=== PATIENT | male | born 1995 | race Hispanic/Latino ===

== ENCOUNTER 2021-01-16 13:16 | Emergency (ER) | payer OTHER ==
[2021-01-16 13:43] VITALS: BP 116/81
[2021-01-16] MEDS ORDERED: METOCLOPRAMIDE 10 MG TAB PO ONE (14:25)
--- NOTE | 2021-01-16 14:28 | Emergency Department Report ---
HPI - General Chief Complaint: Abdominal Pain Time Seen by Provider: 01/16/21 14:24 - HPI HPI: 25-year-old male presents to the emergency department complaint of a 3-week history of nausea with vomiting, and now a 1 to 2-day history of tingling in the hands and around his mouth. Patient says that the nausea is no significant upon waking in the morning. He will vomit once or twice, but if the patient tries to eat anything during any meals he then proceeds to vomit shortly afterwards. He denies any fever, back pain, dysuria, constipation. He does complain of occasional diarrhea. The patient has taken some Zofran that his grandmother has been prescribed and it was working at first but seems to have lost its effectiveness. Because of the symptoms the patient says that he has had decreased oral intake. No recent travel or sick contacts at home. He is vaccinated against COVID-19. Patient denies any significant abdominal discomfort, but says that it feels sore secondary to the vomiting or retching. ED Past Medical Hx - Medications Home Medications: Home Medications Medication Instructions Recorded Confirmed Last Taken Type Famotidine [Pepcid] 20 mg PO BID #20 tablet 01/16/21 Unknown Rx Metoclopramide [Reglan] 10 mg PO TID PRN #20 tab 01/16/21 Unknown Rx ED Review of Systems ROS: Stated complaint: FACIAL NUMBNESS Other details as noted in HPI Comment: All other systems reviewed and negative Constitutional: denies: chills, fever Eyes: denies: eye pain, vision change ENT: denies: ear pain, throat pain Respiratory: denies: cough, shortness of breath Cardiovascular: denies: chest pain, palpitations Gastrointestinal: abdominal pain, nausea, vomiting, diarrhea Genitourinary: denies: dysuria, discharge Musculoskeletal: denies: back pain, arthralgia Skin: denies: rash, lesions Neurological: denies: headache, weakness Physical Exam - Physical Exam Vital Signs: Vital Signs 01/16/21 13:42 Temperature 98.7 F Pulse Rate 91 H Respiratory 18 Rate Blood Pressure 116/81 [Left] O2 Sat by Pulse 100 Oximetry Physical Exam: GENERAL: The patient is well-developed well-nourished. HENT: Normocephalic. Atraumatic. Patient has moist mucous membranes. EYES: Extraocular motions are intact. NECK: Supple. Trachea is midline. CHEST/LUNGS: Clear to auscultation. There is no respiratory distress noted. HEART/CARDIOVASCULAR: Regular. There is no tachycardia. There is no murmur. ABDOMEN: Abdomen is soft, nontender. Patient has normal bowel sounds. There is no abdominal distention. SKIN: Skin is warm and dry. NEURO: The patient is awake, alert, and oriented. The patient is cooperative. The patient has no focal neurologic deficits. Normal speech. MUSCULOSKELETAL: There is no tenderness or deformity. There is no limitation range of motion. Capillary refill less than 2 seconds and radial pulse +2/4. ED Course Vital Signs 01/16/21 13:42 Temperature 98.7 F Pulse Rate 91 H Respiratory 18 Rate Blood Pressure 116/81 [Left] O2 Sat by Pulse 100 Oximetry ED Medical Decision Making - Lab Data Result diagrams: 01/16/21 14:37 01/16/21 14:37 Lab Results 01/16/21 01/16/21 Range/Units 14:37 14:37 WBC 4.1 L (4.5-11.0) K/mm3 RBC 5.30 H (3.65-5.03) M/mm3 Hgb 16.5 H (11.8-15.2) gm/dl Hct 47.8 H (35.5-45.6) % MCV 90 (84-94) fl MCH 31 (28-32) pg MCHC 35 H (32-34) % RDW 12.5 L (13.2-15.2) % Plt Count 216 (140-440) K/mm3 Lymph % (Auto) 19.7 (13.4-35.0) % Clay % (Auto) 7.1 (0.0-7.3) % Eos % (Auto) 0.1 (0.0-4.3) % Baso % (Auto) 0.6 (0.0-1.8) % Lymph # (Auto) 0.8 L (1.2-5.4) K/mm3 Clay # (Auto) 0.3 (0.0-0.8) K/mm3 Eos # (Auto) 0.0 (0.0-0.4) K/mm3 Baso # (Auto) 0.0 (0.0-0.1) K/mm3 Seg Neutrophils % 72.5 H (40.0-70.0) % Seg Neutrophils # 2.9 (1.8-7.7) K/mm3 Sodium 138 (137-145) mmol/L Potassium 3.9 (3.6-5.0) mmol/L Chloride 101.4 (98-107) mmol/L Carbon Dioxide 25 (22-30) mmol/L Anion Gap 16 mmol/L BUN 9 (9-20) mg/dL Creatinine 1.0 (0.8-1.3) mg/dL Estimated GFR > 60 ml/min BUN/Creatinine Ratio 9 % Glucose 96 (75-100) mg/dL Calcium 10.0 (8.4-10.2) mg/dL Magnesium 2.40 H (1.7-2.3) mg/dL Total Bilirubin 1.00 (0.1-1.2) mg/dL AST 14 (5-40) units/L ALT 9 (7-56) units/L Alkaline Phosphatase 51 (35-129) units/L Total Protein 7.3 (6.3-8.2) g/dL Albumin 5.2 H (3.9-5) g/dL Albumin/Globulin Ratio 2.5 % - Medical Decision Making This patient presents with a 3-week history of nausea with vomiting, that worsens with any oral intake. On examination the abdomen is soft, nontender and nondistended, and nontoxic in appearance. Patient does not appear in any respiratory or acute distress. Labs have been mostly unremarkable including CBC, metabolic panel and magnesium level. There are no significant electrolyte abnormalities, but the CBC does appear hemoconcentrated and thus possibly showing some mild dehydration. Vital signs reassuring including being afebrile. The patient was able to pass an oral challenge. He will be discharged home with a prescription for Reglan and outpatient follow-up with [facility]. Critical Care Time: No Critical care attestation.: If time is entered above; I have spent that time in minutes in the direct care of this critically ill patient, excluding procedure time. ED Disposition Clinical Impression: Dehydration Nausea & vomiting Qualifiers: Vomiting type: unspecified Vomiting Intractability: non-intractable Qualified Code(s): R11.2 - Nausea with vomiting, unspecified Disposition: 01 HOME / SELF CARE / HOMELESS Is pt being admited?: No Condition: Stable Instructions: Nausea and Vomiting, Adult, Dehydration, Adult Additional Instructions: Please follow-up with a primary care physician in the next few days. I have given you a referral for a local primary care physician, Dr. Philip, and a primary care clinic, [facility]. I have given you a referral for [facility] to follow-up regarding your chronic and/or persistent nausea with vomiting. Increase your oral rehydration. Return to the emergency department with any worsening of your symptoms, new or concerning symptoms not addressed during this current emergency department visit, or with any acute distress. Prescriptions: Famotidine [Pepcid] 20 mg PO BID #20 tablet Metoclopramide [Reglan] 10 mg PO TID PRN #20 tab PRN Reason: Nausea Referrals: PRIMARY CAREMD [Primary Care Provider] - 3-5 Days [facility] [Provider Group] - 3-5 Days [facility] [Provider Group] - 3-5 Days EDEL PHILIP MD [Staff Physician] - 3-5 Days Time of Disposition: 15:28
[2021-01-16 14:52] LABS: Basophils % (Auto) 0.6 % (0.0-1.8); Eosinophils % (Auto) 0.1 % (0.0-4.3); Hematocrit 47.8 % (35.5-45.6); Hemoglobin 16.5 gm/dl (11.8-15.2); Lymphocytes # (Auto) 0.8 K/mm3 (1.2-5.4); Lymphocytes % (Auto) 19.7 % (13.4-35.0); Mean Corpuscular HGB Conc 35 % (32-34); Mean Corpuscular Volume 90 fl (84-94); Monocytes # (Auto) 0.3 K/mm3 (0.0-0.8); Monocytes % (Auto) 7.1 % (0.0-7.3); Platelet Count 216 K/mm3 (140-440); Red Cell Distribution Width 12.5 % (13.2-15.2)
[2021-01-16 15:15] LABS: Alanine Aminotransferase 9 units/L (7-56); Albumin 5.2 g/dL (3.9-5); BUN/Creatinine Ratio 9; Blood Urea Nitrogen 9 mg/dL (9-20); Hemolysis Index 10
== END 2021-01-16 16:10 | disposition home or self-care (01) ==
LOC: ED 13:16
DX: E86.0 Dehydration (principal); R11.2 Nausea with vomiting, unspecified
CPT/HCPCS: 36415; 80053; 83735; 85025; 99283

== ENCOUNTER 2021-05-01 13:58 | Emergency (ER) | payer OTHER ==
--- NOTE | 2021-05-01 18:46 | Emergency Department Report ---
ED General Adult HPI - General Chief complaint: Upper Respiratory Infection Stated complaint: COUGH/CONGESTION Time Seen by Provider: 05/01/21 18:13 Source: patient Mode of arrival: Ambulatory Limitations: No Limitations - History of Present Illness Initial comments: 25-year-old male patient presents with complaints of parasternal chest pain today. He reports he has been coughing for the past 5 days and has mild clear and yellow mucus production. He denies any loss of taste or smell. He is not vaccinated against COVID-19 and has not received a COVID-19 test. He also denies any shortness of breath, hemoptysis, leg pain/swelling, recent long travel, or history of DVT/PE/cancer. No other prior medical history per patient. Pain in the chest occurs only with deep inhalation. He also denies any personal history or family history of heart disease Severity scale (0 -10): 2 - Related Data Previous Rx's Medication Instructions Recorded Last Taken Type Famotidine [Pepcid] 20 mg PO BID #20 tablet 01/16/21 Unknown Rx Metoclopramide [Reglan] 10 mg PO TID PRN #20 tab 01/16/21 Unknown Rx Benzonatate 200 mg PO TID PRN #20 cap 05/01/21 Unknown Rx Naproxen 500 mg PO BID PRN #20 tab 05/01/21 Unknown Rx predniSONE [Deltasone] 20 mg PO QDAY 3 Days #6 tab 05/01/21 Unknown Rx Allergies Allergy/AdvReac Type Severity Reaction Status Date / Time No Known Allergies Allergy Verified 05/01/21 18:02 ED Review of Systems ROS: Stated complaint: COUGH/CONGESTION Other details as noted in HPI Constitutional: denies: chills, diaphoresis, fever, malaise, weakness Respiratory: cough. denies: shortness of breath, SOB with exertion Cardiovascular: as per HPI. denies: edema, syncope Gastrointestinal: denies: abdominal pain, nausea, vomiting Neurological: denies: headache ED Past Medical Hx - Medications Home Medications: Home Medications Medication Instructions Recorded Confirmed Last Taken Type Famotidine [Pepcid] 20 mg PO BID #20 tablet 01/16/21 Unknown Rx Metoclopramide [Reglan] 10 mg PO TID PRN #20 tab 01/16/21 Unknown Rx Benzonatate 200 mg PO TID PRN #20 cap 05/01/21 Unknown Rx Naproxen 500 mg PO BID PRN #20 tab 05/01/21 Unknown Rx predniSONE [Deltasone] 20 mg PO QDAY 3 Days #6 tab 05/01/21 Unknown Rx ED Physical Exam - General Limitations: No Limitations General appearance: alert, in no apparent distress - Head Head exam: Present: atraumatic, normocephalic - Eye Eye exam: Present: normal appearance. Absent: scleral icterus - Neck Neck exam: Present: normal inspection - Respiratory Respiratory exam: Present: normal lung sounds bilaterally. Absent: respiratory distress, chest wall tenderness - Cardiovascular Cardiovascular Exam: Present: regular rate, normal rhythm - Extremities Exam Extremities exam: Absent: calf tenderness - Neurological Exam Neurological exam: Present: alert, oriented X3 - Psychiatric Psychiatric exam: Present: normal affect, normal mood - Skin Skin exam: Present: warm, dry, intact, normal color. Absent: rash ED Course Vital Signs 05/01/21 18:00 Temperature 98.7 F Pulse Rate 86 Respiratory 18 Rate Blood Pressure 142/74 [Right] O2 Sat by Pulse 97 Oximetry ED Medical Decision Making - Radiology Data Radiology results: report reviewed CHEST 2 VIEWS INDICATION / CLINICAL INFORMATION: cough, chest pain. FINDINGS: SUPPORT DEVICES: None. HEART / MEDIASTINUM: No significant abnormality. LUNGS / PLEURA: No significant pulmonary or pleural abnormality. No pneumothorax. ADDITIONAL FINDINGS: No significant additional findings. IMPRESSION: 1. No acute findings. - Medical Decision Making 25-year-old male patient presents with complaints of parasternal chest pain today. He reports he has been coughing for the past 5 days and has mild clear and yellow mucus production. He denies any loss of taste or smell. He is not vaccinated against COVID-19 and has not received a COVID-19 test. He also denies any shortness of breath, hemoptysis, leg pain/swelling, recent long travel, or history of DVT/PE/cancer. No other prior medical history per patient. Pain in the chest occurs only with deep inhalation. He also denies any personal history or family history of heart disease Physical exam is normal. PERC score = 0. Pain occurs only with deep inhalation. Chest x-ray is normal. Suspect costochondritis. We will treat with naproxen and icing. Recommend patient follows up with PCP in 3 to 5 days. Also recommend he gets outpatient COVID-19 testing performed and self quarantine until his results are back. He is otherwise well-appearing, his vitals are within normal limits, he is stable for discharge home. Strict return precautions were discussed in detail with patient who verbalizes understanding Critical care attestation.: If time is entered above; I have spent that time in minutes in the direct care of this critically ill patient, excluding procedure time. ED Disposition Clinical Impression: Viral URI with cough, Pleuritic chest pain Disposition: HOME / SELF CARE / HOMELESS Is pt being admited?: No Condition: Stable Instructions: Pleurisy, [id number], Viral Respiratory Infection Prescriptions: Benzonatate 200 mg PO TID PRN #20 cap PRN Reason: Cough predniSONE [Deltasone] 20 mg PO QDAY 3 Days #6 tab Naproxen 500 mg PO BID PRN #20 tab PRN Reason: pain Referrals: [facility] [Provider Group] - 3-5 Days Forms: Work/School Release Form(ED)
--- NOTE | 2021-05-01 19:10 | XRay Report ---
CHEST 2 VIEWS INDICATION / CLINICAL INFORMATION: cough, chest pain. FINDINGS: SUPPORT DEVICES: None. HEART / MEDIASTINUM: No significant abnormality. LUNGS / PLEURA: No significant pulmonary or pleural abnormality. No pneumothorax. ADDITIONAL FINDINGS: No significant additional findings. IMPRESSION: 1. No acute findings. Signer Name: Leo Munoz MD Signed: 05/01/2021 7:06 PM Workstation Name: [id number]
[2021-05-01 19:37] VITALS: BP 116/76
== END 2021-05-01 19:33 | disposition home or self-care (01) ==
LOC: ED 13:58
DX: J06.9 Acute upper respiratory infection, unspecified (principal); B97.89 Other viral agents as the cause of diseases classified elsewhere; R07.89 Other chest pain; Z79.899 Other long term (current) drug therapy
CPT/HCPCS: 71046; 99283